=== PATIENT | female | born 1980 | race Caucasian/White ===

== ENCOUNTER 2016-06-05 20:38 | Emergency (ER) | payer MEDICARE ==
[2015-11-25 08:29] VITALS: BMI 52.4
[~2016-06-05 20:38] MED LIST: HYDROCHLOROTHIA25 MG PO; IPRAT-ALBUT 0.5-3 ML UPD; NEURONTIN 300300 MG PO; NORVASC10 MG PO; PROVENTIL HFA6.7 GM INH; TOPROL XL50 MG PO
== END 2016-06-05 23:22 | disposition left against medical advice (07) ==
LOC: D.ER 20:38
DX: N76.0 Acute vaginitis (principal)

== ENCOUNTER 2016-07-10 20:06 | Emergency (ER) | payer MEDICARE ==
[2015-11-25 08:29] VITALS: BMI 52.4
== END 2016-07-10 21:45 | disposition home or self-care (01) ==
LOC: D.ER 20:06
DX: S80.11XA Contusion of right lower leg, initial encounter (principal); W19.XXXA Unspecified fall, initial encounter; Y93.89 Activity, other specified; Y92.89 Other specified places as the place of occurrence of the external cause; S33.5XXA Sprain of ligaments of lumbar spine, initial encounter; F41.9 Anxiety disorder, unspecified; J45.909 Unspecified asthma, uncomplicated; E66.09 Other obesity due to excess calories; M79.7 Fibromyalgia; I10 Essential (primary) hypertension; F17.200 Nicotine dependence, unspecified, uncomplicated

== ENCOUNTER 2016-08-10 17:23 | Emergency (ER) | payer MEDICARE, MEDICAID ==
[2015-11-25 08:29] VITALS: BMI 52.4
== END 2016-08-10 18:15 | disposition home or self-care (01) ==
LOC: D.ER 17:23
DX: S16.1XXA Strain of muscle, fascia and tendon at neck level, initial encounter (principal); W01.0XXA Fall on same level from slipping, tripping and stumbling without subsequent striking against object, initial encounter; Y93.89 Activity, other specified; Y92.019 Unspecified place in single-family (private) house as the place of occurrence of the external cause; S29.012A Strain of muscle and tendon of back wall of thorax, initial encounter; R07.9 Chest pain, unspecified; J45.909 Unspecified asthma, uncomplicated; I10 Essential (primary) hypertension; F41.9 Anxiety disorder, unspecified; M79.7 Fibromyalgia; E11.9 Type 2 diabetes mellitus without complications; F17.200 Nicotine dependence, unspecified, uncomplicated

== ENCOUNTER 2016-08-12 11:52 | Emergency (ER) | payer MEDICARE, MEDICAID ==
[2015-11-25 08:29] VITALS: BMI 52.4
[2016-08-12 12:53] LABS: BASOPHILS 0.3 % (0-2); EOSINOPHILS 0.6 % (0-7); HEMATOCRIT 46.6 % (36.0-48.0); HEMOGLOBIN 15.4 g/dL (12-16); IMMATURE GRANULOCYTES 0.2 % (0-5); LYMPHOCYTES 24.7 % (15-50); MCH 29.8 pg (26.0-34.0); MCV 90.1 fL (80.0-100.0); MONOCYTES 9.1 % (2-11); NEUTROPHILS 65.1 % (40-80); PLATELET COUNT 209 10x3/uL (130-400); RBC 5.17 10x6/uL (4.00-5.40); RDW 14.8 % (11.5-14.5); WBC 9.3 10x3/uL (4.8-10.8)
[2016-08-12 13:07] LABS: ALBUMIN 3.5 g/dL (3.4-5.0); ANION GAP 10.2 mmol/L (8-16); BILIRUBIN - TOTAL 0.47 mg/dL (0.2-1.3); CALCIUM 9.2 mg/dL (8.5-10.1); CARBON DIOXIDE 28.3 mmol/L (21.0-32.0); POTASSIUM - SERUM 3.5 mmol/L (3.5-5.1); PROTEIN - SERUM 7.4 g/dL (6.4-8.2)
[2016-08-12 13:11] LABS: APPEARANCE CLEAR (CLEAR); BILIRUBIN NEGATIVE (NEGATIVE); COLOR YELLOW (YELLOW); GLUCOSE NEGATIVE (NEGATIVE); KETONE NEGATIVE (NEGATIVE); LEUKOCYTE ESTERASE NEGATIVE (NEGATIVE); NITRITE NEGATIVE (NEGATIVE); PROTEIN 2+ mg/dL (NEGATIVE); SPECIFIC GRAVITY 1.005 (1.005-1.020); UROBILINOGEN NORMAL (NORMAL)
[2016-08-12 13:14] LABS: BACTERIA FEW /hpf (NONE SEEN); EPITHELIAL CELLS 0-5 /hpf (0-5); RED CELLS - URINE 0-5 /hpf (0-5); WHITE CELLS - URINE 0-5 /hpf (0-5)
[2016-08-12 13:54] LABS: HCG URINE NEGATIVE (NEGATIVE)
== END 2016-08-12 14:25 | disposition home or self-care (01) ==
LOC: D.ER 11:52
PROVIDERS: Family Medicine; Nurse Practitioner Family
DX: R10.9 Unspecified abdominal pain (principal); K59.00 Constipation, unspecified; F41.9 Anxiety disorder, unspecified; J45.909 Unspecified asthma, uncomplicated; E11.9 Type 2 diabetes mellitus without complications; I10 Essential (primary) hypertension